=== PATIENT | male | born 1955 | race Caucasian/White ===

== ENCOUNTER 2017-12-30 09:38 | Outpatient (CLI) | payer OTHER ==
--- NOTE | 2017-12-30 16:47 | NM ---
NUCLEAR MEDICINE [facility] SCAN BRAIN: DATE: 12/30/17. HISTORY: A 62 yo male with Parkinson's disease. TECHNIQUE: Pretreatment with 130 mg of potassium iodide 1 hour prior to Ioflupane injection. 4.5 mCi of I-123 Ioflupane injected IV. Three-hour delayed SPECT images of the brain obtained. FINDINGS: There is uptake in bilateral caudate nuclei, but there is no uptake in bilateral putamina. IMPRESSION: Abnormal scan, positive for Parkinsonism. POS: BETTY
== END 2017-12-30 09:39 | disposition home or self-care (01) ==
LOC: NM 09:38
PROVIDERS: ATTEND Psychiatry & Neurology Neurology
DX: G20 Parkinson's disease (principal); R94.02 Abnormal brain scan
CPT/HCPCS: 78607; A9584